=== PATIENT | female | born 1955 | race African-American/Black ===

== ENCOUNTER 2021-01-12 12:55 | Emergency (ER) | payer OTHER ==
[~2021-01-12] VITALS: Ht 165.1 cm; Wt 72.6 kg
== END 2021-01-12 17:00 | disposition left against medical advice (07) ==
LOC: ED 12:55
DX: R53.1 Weakness (principal); M54.9 Dorsalgia, unspecified; Z53.21 Procedure and treatment not carried out due to patient leaving prior to being seen by health care provider